=== PATIENT | male | born 1985 | race Caucasian/White ===

== ENCOUNTER 2020-03-11 11:12 | Emergency (ER) | payer OTHER ==
[~2020-03-11] VITALS: Ht 182.9 cm; Wt 75.4 kg
[2020-03-11] MEDS ORDERED: IOHEXOL 300 MG/ML 75 ML VIAL. IV ONE (11:45)
[2020-03-11 12:06] LABS: BASO # 0.1 x10^3/uL (0.0-0.2); BASO % 1 % (0-3); EOS # 0.3 x10^3/uL (0.0-0.7); EOS % 3 % (0-3); HEMATOCRIT 37.2 % (39.0-53.0); HEMOGLOBIN 12.2 g/dL (13.0-17.5); LYMPH # 1.3 x10^3/uL (1.0-4.8); LYMPH % 13 % (24-48); MEAN CORPUSCULAR HEMOGLOBIN 31 pg (25-35); MEAN CORPUSCULAR HGB CONC 33 g/dL (31-37); MEAN CORPUSCULAR VOLUME 95 fL (79-100); MONO % 10 % (0-9); NEUT # 7.4 x10^3uL (1.8-7.7); NEUT % 74 % (31-73); PLATELET COUNT 445 x10^3/uL (140-400); RED BLOOD COUNT 3.93 x10^6/uL (4.30-5.70); RED CELL DISTRIBUTION WIDTH 12.8 % (11.5-14.5)
[2020-03-11 12:07] LABS: CALCIUM 9.3 mg/dL (8.5-10.1); CREATININE 0.9 mg/dL (0.7-1.3); GFR 97.8; POTASSIUM 4.1 mmol/L (3.5-5.1)
--- NOTE | 2020-03-11 12:39 | RAD ---
EXAM: Chest CT with intravenous contrast. HISTORY: Swelling and pain. TECHNIQUE: Computed tomographic images of the chest were obtained following the administration of int ravenous contrast. Multiplanar reformatting was performed. *One or more of the following individualized dose reduction techniques were utilized for this examina tion: 1. Automated exposure control. 2. Adjustment of the mA and/or kV according to patient size. 3. Use of iterative reconstruction technique. COMPARISON: None. FINDINGS: There are bilateral lower lobe and left upper lobe surgical anastomoses due to suspected bi lateral partial lung resection. There is a small amount of loculated fluid along the bilateral lung a nastomoses and there are small left greater than right pleural effusions. There is masslike consolida tion, hematoma or atelectasis along the left lower lobe anastomosis measuring 3.3 cm. There is additi onal linear atelectasis or contusion along the remainder of the anastomoses. There is minimal biapica l pleural parenchymal scarring. There are bilateral thoracotomy defects. There is a right chest wall port catheter with the tip in the right atrium. There are enlarged bilate ral hilar lymph nodes. For reference first, the largest right hilar lymph node measures 2.5 cm. There is a 6 mm nodule within the lateral right upper lobe. There is a 4 mm nodule within the lateral left upper lobe. There is mild emphysema. There is gynecomastia. The heart is normal in size. There is no acute finding involving the upper abdomen. There is suspected focal fatty infiltration of the liver along the falciform ligament. There are degenerative changes throughout the spine. IMPRESSION: 1. Findings consistent with relatively recent lateral thoracotomies and suspected partial lung resect ions. There is atelectasis or scarring along the left upper and bilateral lower lobe surgical anastom oses and there are small overlying bilateral lateral pleural fluid collection superimposed on small p leural effusions. Correlate with surgical history. 2. Bilateral hilar lymphadenopathy. This may be neoplastic or reactive in etiology. 3. Mild emphysema. 4. Masslike consolidation, hematoma or atelectasis along the left lower lobe surgical anastomosis. Sh ort-term CT follow-up is recommended to confirm stability or resolution and exclude underlying neopla sm. Electronically signed by: Shazia Bryant MD (03/11/2020 12:36 PM) [facility]
--- NOTE | 2020-03-11 12:58 | PHYS DOC ---
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 Patient had a posterior thoracotomy on the L side 2 weeks ago in [place] to remove tumors in his lungs. He had the same surgery in January and did not have any pain afterwards. He noticed the wound was swollen and had some open at the bottom. He has been draining yellow translucent fluid. He has had quite a bit of pain. Denies any fever, cough, shortness of breath, body aches. Review of Systems Review of Systems Complete ROS is negative unless otherwise documented in HPI Current Medications Current Medications Current Medications Medications (Trade) Dose Ordered Sig/Arnol Start Time Stop Time Status Last Admin Dose Admin Iohexol (Omnipaque 300 Mg/ml) 75 ml 1X ONCE 03/11/20 11:45 03/11/20 11:58 DC 03/11/20 12:02 75 ML Morphine Sulfate (Morphine 4mg Syringe) 4 mg 1X ONCE 03/11/20 13:00 03/11/20 13:01 Allergies Allergies Allergies Coded Allergies Type Severity Reaction Last Updated Verified Sulfa (Sulfonamide Antibiotics) Allergy Unknown 03/11/20 Yes Physical Exam Physical Exam General: Awake, alert, NAD. Well Nourished, well hydrated. Cooperative HEENT: Atraumatic, EOMI, PERRL, airway patent, moist oral mucosa Neck: Supple, trachea midline Respiratory: CTA bilaterally, normal effort, no wheezing/crackles CV: RRR, no murmur, cap refill <2 GI: Soft, nondistended, nontender, no masses MSK: No obvious deformities Skin: Warm, dry. L upper back: wound is clean, dry, and has a small amount of dehiscence at the bottom(1cm), small amount of yellow serous fluid draining from dehiscence. R upper back with prior surgical scar that is healed Neuro: A&O x3, speech NL, sensory and motor grossly intact, no focal deficits Psych: Normal affect, normal mood, not suicidal or homicidal Current Patient Data Vital Signs Vital Signs Date Time Temp Pulse Resp B/P (MAP) Pulse Ox O2 Delivery O2 Flow Rate FiO2 03/11/20 12:12 112 16 149/71 (97) 98 Room Air 03/11/20 11:20 98.7 Lab Results Laboratory Tests Test 03/11/20 11:40 White Blood Count 10.0 x10^3/uL (4.0-11.0) Red Blood Count 3.93 x10^6/uL (4.30-5.70) L Hemoglobin 12.2 g/dL (13.0-17.5) L Hematocrit 37.2 % (39.0-53.0) L Mean Corpuscular Volume 95 fL (79-100) Mean Corpuscular Hemoglobin 31 pg (25-35) Mean Corpuscular Hemoglobin Concent 33 g/dL (31-37) Red Cell Distribution Width 12.8 % (11.5-14.5) Platelet Count 445 x10^3/uL (140-400) H Neutrophils (%) (Auto) 74 % (31-73) H Lymphocytes (%) (Auto) 13 % (24-48) L Monocytes (%) (Auto) 10 % (0-9) H Eosinophils (%) (Auto) 3 % (0-3) Basophils (%) (Auto) 1 % (0-3) Neutrophils # (Auto) 7.4 x10^3uL (1.8-7.7) Lymphocytes # (Auto) 1.3 x10^3/uL (1.0-4.8) Monocytes # (Auto) 1.0 x10^3/uL (0.0-1.1) Eosinophils # (Auto) 0.3 x10^3/uL (0.0-0.7) Basophils # (Auto) 0.1 x10^3/uL (0.0-0.2) Sodium Level 136 mmol/L (136-145) Potassium Level 4.1 mmol/L (3.5-5.1) Chloride Level 99 mmol/L (98-107) Carbon Dioxide Level 28 mmol/L (21-32) Anion Gap 9 (6-14) Blood Urea Nitrogen 12 mg/dL (8-26) Creatinine 0.9 mg/dL (0.7-1.3) Estimated GFR (Cockcroft-Gault) 97.8 Glucose Level 98 mg/dL (70-99) Calcium Level 9.3 mg/dL (8.5-10.1) EKG EKG [] Radiology/Procedures Radiology/Procedures [] Heart Score Risk Factors: Risk Factors: DM, Current or recent (<one month) smoker, HTN, HLP, family history of CAD, obesity. Risk Scores: Risk Factors: DM, Current or recent (<one month) smoker, HTN, HLP, family history of CAD, obesity. Course & Med Decision Making Course & Med Decision Making Pertinent Labs and Imaging studies reviewed. (See chart for details) Patient is a 34-year-old male who presents to the emergency room complaining of pain and swelling around his surgical wound site. The actual wound has a small amount of dehiscence but no surrounding erythema or induration to suggest infection. There does feel like there is fluid underneath the wound. This may be related to a surgical seroma or hematoma. There is no obvious signs of infection. CT of the chest with contrast was ordered to evaluate for infection or complications of the surgery. CT does show a fluid collection this is likely a seroma. I have discussed with the patient that he should call his surgeon to let him know about the postsurgical complication. We have discussed signs and symptoms of an infected seroma. Patient's test results and vitals while in the ED were fully reviewed and discussed with the patient. Patient is stable and at this time does not need admission to the hospital. We have discussed strict return precautions and the importance of following up with their Primary Care Physician. Patient stated understanding and was given an opportunity to ask any questions. Patient is in agreement with plan. Dragon Disclaimer Dragon Disclaimer This electronic medical record was generated, in whole or in part, using a voice recognition dictation system. Departure Departure: Impression: Primary Impression: Postoperative seroma Disposition: 01 DC HOME SELF CARE/HOMELESS Condition: STABLE Referrals: PCP,UNKNOWN (PCP) Patient Instructions: Wound Care, [id number], Wound Dehiscence DESHAUN WONG MD Mar 11, 2020 12:58
[2020-03-11] MEDS ORDERED: MORPHINE SULFATE 4 MG/ML DISP.SYRIN. IV ONE (13:00)
[2020-03-11 13:20] VITALS: BP 145/70
== END 2020-03-11 13:16 | disposition home or self-care (01) ==
LOC: ER 11:12
DX: L76.34 Postprocedural seroma of skin and subcutaneous tissue following other procedure (principal); Z98.890 Other specified postprocedural states; Z88.2 Allergy status to sulfonamides
CPT/HCPCS: 36415; 71260; 80048; 85025; 99285; Q9967